=== PATIENT | male | born 1955 | race Caucasian/White ===

== ENCOUNTER 2022-07-13 08:32 | Inpatient (IN) | payer MEDICARE, OTHER ==
[~2022-07-13] VITALS: Ht 172.7 cm; Wt 97.2 kg
[~2022-07-13 08:32] MED LIST: LISINOPRIL5 MG PO; PRILOSEC20 MG PO
[2022-07-13] MEDS ORDERED: LISINOPRIL-HCT1 EACH PO (10:31)
[2022-07-13] MEDS ORDERED: PANTOPRAZOLE SO40 MG PO (10:31)
[2022-07-13] MEDS ORDERED: SUCRALFATE1 GM PO (10:31)
[2022-07-13] MEDS ORDERED: TAMSULOSIN HCL0.4 MG PO (13:09)
[2022-07-13] MEDS ORDERED: SIMVASTATIN40 MG PO (13:09)
[2022-07-16] MEDS ORDERED: MOTRIN IB200 MG PO (09:34)
[2022-07-16] MEDS ORDERED: TYLENOL EXTRA500 MG PO (09:34)
[2022-07-16] MEDS ORDERED: PERCOCET 7.5-31 EACH PO (09:34)
--- NOTE | 2022-07-16 10:40 | HP ---
[facility] [address] [place], [place] [address] Signed ADMISSION DATE: 07/13/2022 REASON FOR ADMISSION: Small bowel obstruction. HISTORY OF PRESENT ILLNESS: This 66-year-old white man is a patient of Dr. Vazquez. I was called by Dr. Vazquez's this morning, noting that the patient had undergone a CT scan of the abdomen yesterday. The results were not available to Dr. Vazquez's until today, but did confirm a central small bowel obstruction considered at the area of prior small bowel anastomosis. I am well familiar with the patient having performed Hill posterior gastropexy for reflux disease and associated Jewell's esophagus in 1997. Subsequently, he did have a small bowel obstruction in 2001 requiring segmental small bowel resection with anastomosis. The patient tells me he has been having symptoms since the weekend (today is Tuesday) and pain has been unrelenting and abdominal distention significant. Notably, he has not had nausea or vomiting particularly. The patient and his relate that he has had episodes of a similar type at least two times a year for the past several years. I had never been aware of these problems and they typically resolve on their own. Imaging studies including a CT scan from yesterday confirmed a granuloma in the right lower abdomen anterior abdominal wall and dilated small bowel with a transition point in the central abdomen near a prior small bowel anastomosis. There was no colonic dilatation and no abnormality of the appendix. Prior cholecystectomy was confirmed. He had no thyromegaly rather splenomegaly or splenic mass. There is no finding of hiatal hernia. There is no pleural effusion or pulmonary abnormality otherwise. MEDICATIONS: Include lisinopril 5 mg daily and omeprazole 20 mg daily. REVIEW OF SYSTEMS: He denies any shortness of breath or actual chest pain. He mostly complains of central abdominal pain and significant distention. PHYSICAL EXAMINATION: GENERAL: This is an obese white man who looks to be in moderate discomfort. Electronically Signed By: NOHEMI CHOE MD 07/16/22 1040 PATIENT NAME: ASIYA ALVARADO HISTORY AND PHYSICAL DATE OF : 55 REPORT #: [id number] PHYSICIAN: NOHEMI CHOE MD PCP: CLARI VAZQUEZ MD REPORT IS CONFIDENTIAL AND NOT TO BE RELEASED WITHOUT AUTHORIZATION [facility] [address] [place], [place] [address] Signed VITAL SIGNS: Show temperature of 98, pulse 101, blood pressure 145/67, respirations 24, O2 saturations 100% on room air. HEENT: He has a thick quinn leal. Trachea is midline. CHEST: Shows clear breath sounds bilaterally. HEART: Regular. ABDOMEN: Quite markedly distended with a "beach ball" appearance. There is a small soft tissue mass in the right lateral abdominal wall about 2 cm in size. He does not have a generalized peritonitis. EXTREMITIES: Show no clubbing, cyanosis, or edema. LABORATORY DATA: Today show white count of 10.3, hematocrit 47.1, platelets 215,000. Chem profile is essentially normal. Glucose 134, bilirubin 1.3, ALT 65, total protein is 8.6, amylase is normal at 50, lipase normal at 110. Serology shows pending coronavirus and influenza assessment. I have reviewed the CT scan in detail as well as reports and so on. ASSESSMENT: The patient appears to have significant small-bowel obstruction with considerable abdominal distention. The ostensible site of obstruction is considered a prior anastomosis. This may represent an internal hernia or simple adhesion or stricture related obstruction. At this point, fluid resuscitation is paramount as well as pain control under the circumstances we will place a nasogastric tube as additional air stacking will worsen his distention thus warranting decompression. It is highly probable, considering his chronic recurrent similar symptoms over the past few years, that operative intervention will be necessary. It is noted that the stomach on the CT scan does not show signs of excessive distention. He does have somewhat dysmorphic lower rib cage, particularly on the left and considerable amount of intraabdominal visceral fat. MD SHANELL Cade/RAFFIL /[id number] Electronically Signed By: NOHEMI CHOE MD 07/16/22 1040 PATIENT NAME: ASIYA ALVARADO HISTORY AND PHYSICAL DATE OF : 55 REPORT #: [id number] PHYSICIAN: NOHEMI CHOE MD PCP: CLARI VAZQUEZ MD REPORT IS CONFIDENTIAL AND NOT TO BE RELEASED WITHOUT AUTHORIZATION [facility] [address] [place] [address] Signed Copies: ~ Electronically Signed By: NOHEMI CHOE MD 07/16/22 1040 PATIENT NAME: ASIYA ALVARADO HISTORY AND PHYSICAL DATE OF : 55 REPORT #: [id number] PHYSICIAN: NOHEMI CHOE MD PCP: CLARI VAZQUEZ MD REPORT IS CONFIDENTIAL AND NOT TO BE RELEASED WITHOUT AUTHORIZATION
--- NOTE | 2022-07-16 13:12 | DS ---
[facility] [address] [place], [place] [address] Signed ADMISSION DATE: 07/13/2022 DISCHARGE DATE: 07/16/2022 REASON FOR ADMISSION: This 66-year-old white man is a patient of Dr. Vazquez. I was called by Dr. Vazquez on the morning of his admission, noting the patient had undergone a CT scan of the abdomen the day before for recurrent abdominal pain. This confirmed the central small bowel obstruction considered in the area of prior small bowel anastomosis. I am well familiar with the patient as he underwent Hill posterior gastropexy for reflux disease and associated Jewell's esophagus in 1997. Subsequently, he did have small bowel obstruction in 2001 requiring segmental small-bowel resection with anastomosis. The patient has been having at least every six months episodes of three days of unrelenting abdominal pain, relieved only by lying in a position for 2 to 3 days. He had another episode recently and evaluation by CT scan was undertaken by Dr. Vazquez. Given the findings of probable anastomotic obstructed area, further admission to the hospital was recommended. PHYSICAL EXAMINATION: GENERAL: Showed an obese white man who looks to be in moderate discomfort. VITAL SIGNS: Temperature is 98, pulse 101, blood pressure 145/67, respirations 24, saturations 100% on room air. CHEST: Clear. HEART: Regular without murmur. ABDOMEN: Quite markedly distended with a "beach ball" appearance. There is a small soft tissue mass in the right lateral abdominal wall 2 cm in size. He has no sign of generalized peritonitis. LABORATORY DATA: White count was 10.3, hematocrit 47.1, platelets 215,000. Chem profile normal. HOSPITAL COURSE: The patient was admitted and although not with nausea or vomiting, was given a nasogastric tube. This did not put out very much fluid. The following day, abdominal x-ray showed that the contrast from the CT scan had progressed throughout the bowel and into the colon. Given the patient's recurrent episodes of small-bowel obstruction, thought likely related to an anastomotic stricture or adhesions, further consideration was made for definitive treatment of his problem. Electronically Signed By: NOHEMI CHOE MD 07/16/22 1312 PATIENT NAME: ASIYA ALVARADO DISCHARGE SUMMARY DATE OF : 55 REPORT #: [id number] PHYSICIAN: NOHEMI CHOE MD PCP: CLARI VAZQUEZ MD REPORT IS CONFIDENTIAL AND NOT TO BE RELEASED WITHOUT AUTHORIZATION [facility] [address] [place] [address] Signed On July 14, 2022, he underwent exploration of the abdomen. 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 Meticulous dissection was required to free the anterior abdominal wall from the underlying small bowel which was densely matted together. A single enterotomy was made during the course of the long lengthy freeing of the bowel from the abdominal wall which was meticulously repaired including application of fibrin glue at conclusion. It became quite clear that further efforts of freeing of bowel to encounter the presumed site of previous instruction would be more hazardous than beneficial. The abdomen was closed safely after freeing the fascial layer from the underlying small bowel which was densely matted together with interloop adhesions. A small-bowel follow-through was performed the next day, which showed complete passage of contrast through the bowel with no evidence of obstruction or impediment. Nasogastric tube was removed and he was advanced in his diet. By day of discharge, he is tolerating a low-fiber diet without problem. One would have to be very strongly pushed to enter the abdominal cavity again for remedy of a bowel obstruction. I would predict at least 8-10 hours of laborious lysis of adhesions to even encounter an area of obstruction in the future and I would certainly make all attempts to avoid need for exploration of his particular abdomen in the future. FOLLOWUP PLAN: He is return to see me in approximately four weeks. He is to lift no more than 20 pounds for four weeks. DISCHARGE MEDICATIONS: Will include: 1. Tylenol Extra Strength 500 mg 2 tabs p.o. q.6 hours as needed for pain #60. 2. Ibuprofen 600 mg p.o. q.6 hours as needed for pain #30, refill 0. 3. Percocet 7.5/325 one p.o. q.6 hours as needed for pain #10. 4. He will continue his usual medications of Protonix, sucralfate, lisinopril, hydrochlorothiazide, tamsulosin, and simvastatin. DISCHARGE DIAGNOSES: 1. Acute small bowel obstruction with spontaneous resolution. 2. 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 3. Distant history of Hill posterior gastropexy for reflux disease. 4. Distant history of small bowel resection for small bowel obstruction (2001). 5. Obesity. 6. Hypertension. Electronically Signed By: NOHEMI CHOE MD 07/16/22 1312 PATIENT NAME: ASIYA ALVARADO DISCHARGE SUMMARY DATE OF : 55 REPORT #: [id number] PHYSICIAN: NOHEMI CHOE MD PCP: CLARI VAZQUEZ MD REPORT IS CONFIDENTIAL AND NOT TO BE RELEASED WITHOUT AUTHORIZATION [address] [place], [place] [address] Signed MD SHANELL Cade/MODL /[id number] cc: Clari Vazquez MD Copies: CLARI VAZQUEZ MD ~ Electronically Signed By: NOHEMI CHOE MD 07/16/22 1312 PATIENT NAME: ASIYA ALVARADO DISCHARGE SUMMARY DATE OF : 55 REPORT #: [id number] PHYSICIAN: NOHEMI CHOE MD PCP: CLARI VAZQUEZ MD REPORT IS CONFIDENTIAL AND NOT TO BE RELEASED WITHOUT AUTHORIZATION
--- NOTE | 2022-07-20 07:39 | OR ---
[facility] [address] [place], [place] [address] Signed DATE OF OPERATION: 07/14/2022 SURGEON: Nohemi Choe MD PREOPERATIVE DIAGNOSIS: Recurrent small-bowel obstruction, apparent anastomotic site of obstruction. POSTOPERATIVE DIAGNOSES: 1. Recurrent small-bowel obstruction, apparent anastomotic site of obstruction. 2. Frozen abdomen, extensive adhesions. PROCEDURE: Laparotomy with extensive lysis of adhesions. Repair of enterotomy, inability to fully mobilize small bowel. ANESTHESIA: General endotracheal, Nohemi Alves CRNA. INDICATION: This 66-year-old white man is known to me from the past having undergone Hill posterior gastropexy for reflux disease in 1997. He subsequently underwent laparotomy and lysis of adhesions and segmental small bowel resection in 2001 for bowel obstruction. I was recently called by Dr. Vazquez as the patient has had bouts of abdominal pain recently for which a CT scan was performed on July 12 showing a small bowel obstruction apparently in the area of previous anastomosis. He did not have nausea or vomiting but pain. The patient advises me that he has two episodes a year of rather significant abdominal pain, relieved only by lying in the position for a few days, but ultimately resolving. Overnight, he is improved, having had rehydration and a followup KUB today shows contrast to be in the colon indicative of a non-complete obstruction. Considering his recurrent bouts of obstruction, I have offered and he strongly wishes to undergo laparotomy for remedy of the adhesion related problem or other cause of his bowel obstruction. He and his understand the risks of bleeding, infection, failure of operation, need for other indicated procedures and so forth. FINDINGS: He had a frozen abdomen. Entry to the peritoneal cavity was meticulous and thin small bowel loops were in a cocoon-like attitude of interloop adhesions. Small bowel was freed from the anterior abdominal wall through the midline incision hoping to find an entry point into the depths of the abdominal cavity, but his situation was one of Electronically Signed By: NOHEMI CHOE MD 07/16/22 1311 Electronically Signed By: NOHEMI CHOE MD 07/22/22 0829 PATIENT NAME: ASIYA ALVARADO OPERATIVE REPORT DATE OF : 55 REPORT #: [id number] PHYSICIAN: NOHEMI CHOE MD PCP: CLARI VAZQUEZ MD REPORT IS CONFIDENTIAL AND NOT TO BE RELEASED WITHOUT AUTHORIZATION [facility] [address] [place], [place] [address] Signed profound interloop adhesions. A small enterotomy did occur despite meticulous efforts to avoid it and was repaired in a two-layer technique with application of fibrin glue. Rather than persist with further high probability of catastrophic enterotomies and ultimate fistula formation, the operation was truncated at the lysis of adhesions that had occurred anticipating a contrast study to assess for degree of obstructive process. I predict that operation for his obstruction would require more than 8 hours of dissection and perhaps be more hazardous for enterotomy and fistula formation than would warrant particularly if he does not have total obstruction at this time. DESCRIPTION OF PROCEDURE: The patient was brought to the operating room, given a general endotracheal anesthetic. A nasogastric tube was in place. A Skinner catheter was placed as well. The abdomen was clipped and prepared with a chlorhexidine solution and draped sterilely. The previous midline incision extended from xiphoid to suprapubic area. The area cephalad to the umbilicus was decided upon for entry to the abdomen. An incision was made with a 10 blade and dissection carried down to the fascia. Fascia was incised with electrocautery and a small amount of properitoneal fat identified. The fascia was elevated and using meticulous care, the fascia was divided. Quickly apparent just cephalad to the umbilicus was a loop of small bowel densely adherent to the abdominal wall. This was carefully avoided of course. Dissection was begun with sharp dissection cephalad to this area, freeing the bowel loops which were friable, thin and impressively matted together. Meticulous care was maintained to develop a plane on the right side of the abdomen, initially freeing the anterior abdominal wall from the intra-abdominal viscera. Optimism was maintained that an intraperitoneal window would find non-encumbered bowel, but it was not forthcoming. Dissection was carried inferiorly where at the umbilicus and slightly below bowel loops were quite densely adherent. It is uncertain if this may have represented the actual site of obstruction. Further dissection was undertaken more fully laterally freeing the bowel, but noting that it was encumbered in a essentially an encasement of interloop adhesions. Indeed this was a typical "frozen abdomen." Upon freeing the bowel more fully, a small enterotomy was made in one of the bowel loops. Egress of foamy green bile was noted. This area was isolated and more fully dissected free and repair undertaken in a two-layer technique of interrupted 3-0 Vicryl mucosal layer and interrupted 3-0 silk in the serosal layer. Subsequently, a large clip was applied to the silk tag stitch for further imaging identification and ultimately later fibrin glue applied as well. There was no sign of leakage or other problem. There is no known downstream obstruction which would increase the hazard of fistula formation. Given the appearance of the abdomen and the fact that much of his obstructive process had cleared overnight, it is deemed more advisable to abandon operation today more fully perhaps with a small-bowel follow-through and return if necessary for other interventions. Since the midline fascia was still fused to bowel in the left side of Electronically Signed By: NOHEMI CHOE MD 07/16/22 1311 Electronically Signed By: NOHEMI CHOE MD 07/22/22 8305 PATIENT NAME: ASIYA ALVARADO OPERATIVE REPORT DATE OF : 55 REPORT #: [id number] PHYSICIAN: NOHEMI CHOE MD PCP: CLARI VAZQUEZ MD REPORT IS CONFIDENTIAL AND NOT TO BE RELEASED WITHOUT AUTHORIZATION [facility] [address] [place] [facility] [place] [address] Signed the abdomen, this needed to be freed even to allow for safe closure. On that basis with sharp dissection including a 15 blade and so forth, bowel loops that were densely adherent to the anterior abdominal wall were freed up including in the region of the umbilicus allowing for safe closure. Irrigation was undertaken. Midline fascia was reapproximated with running bidirectional #1 PDS suture. Subcutaneous tissue was irrigated and skin closed with running subcuticular 3-0 Vicryl. Steri-Strips were applied as was an Acticoat dressing. The patient was ultimately extubated and transferred to the recovery room in good condition having suffered no severe complication. Sponge, needle, and counts reported as correct x3. MD SHANELL Cade/RAFFIL /[id number] cc: Clari Vazquez MD Copies: CLARI VAZQUEZ MD ~ Electronically Signed By: NOHEMI CHOE MD 07/16/22 1311 Electronically Signed By: NOHEMI CHOE MD 07/22/22 0829 PATIENT NAME: ASIYA ALVARADO OPERATIVE REPORT DATE OF : 55 REPORT #: [id number] PHYSICIAN: NOHEMI CHOE MD PCP: CLARI VAZQUEZ MD REPORT IS CONFIDENTIAL AND NOT TO BE RELEASED WITHOUT AUTHORIZATION
== END 2022-07-16 10:20 | disposition home or self-care (01) | DRG 331 ==
LOC: MS 08:32
PROVIDERS: ADMIT Surgery; ATTEND Surgery
PROC: 0DN80ZZ Release Small Intestine, Open Approach (ICD-10-PCS; principal; 2022-07-14 09:15)
PROC: 0DQ80ZZ Repair Small Intestine, Open Approach (ICD-10-PCS; 2022-07-14 09:15)
DX: K91.30 Postprocedural intestinal obstruction, unspecified as to partial versus complete (principal); E66.9 Obesity, unspecified; I10 Essential (primary) hypertension; Z20.822 Contact with and (suspected) exposure to COVID-19; Z68.32 Body mass index [BMI] 32.0-32.9, adult; Y83.8 Other surgical procedures as the cause of abnormal reaction of the patient, or of later complication, without mention of misadventure at the time of the procedure
CPT/HCPCS: 00790; 36415; 74018; 74250; 80048; 80053; 82150; 83690; 85025; 87502; 94760; J0131; J0330; J0694; J1100; J1170; J1644; J1885; J2250; J2405; J2704; J2765; J3010; J7121; U0003

== ENCOUNTER 2025-04-28 19:57 | Inpatient (IN) | payer MEDICARE, OTHER ==
[~2025-04-28] VITALS: Ht 172.7 cm; Wt 97.2 kg
[~2025-04-28 19:57] MED LIST changes: +LISINOPRIL-HCT1 EACH PO; +MOTRIN IB200 MG PO; +PANTOPRAZOLE SO40 MG PO; +PERCOCET 7.5-31 EACH PO; +SIMVASTATIN40 MG PO; +SUCRALFATE1 GM PO; +TAMSULOSIN HCL0.4 MG PO; +TYLENOL EXTRA500 MG PO
[2025-04-28 20:59] LABS: BASOPHILS 0.3 % (0.2-1.2); EOSINOPHILS 1.1 % (0.8-7.0); LYMPHOCYTES 8.5 % (21.8-53.1); MCH 30.7 PG (25.7-32.2); MCHC 35.1 g/dL (32.3-36.5); MCV 87.3 fL (79.0-92.2); MONOCYTES 6.4 % (5.3-12.2); NEUTROPHILS 83.3 % (34.0-67.9); RBC 5.51 M/uL (4.63-6.08)
[2025-04-28] MEDS ORDERED: SODIUM CHLORIDE 0.9% 1,000 ML IV ONE (21:00)
[2025-04-28] MEDS ORDERED: HYDROmorphone HCL 1 MG/ML SYR IV PRN ×2 (21:00→22:45)
[2025-04-28 21:15] LABS: ALT (SGPT) 70.0 U/L (14-59); AST (SGOT) 41.0 U/L (15-37); GLOMERULAR FILTRATION RATE,EST 72.0 mL/min (>60); PROTEIN, TOTAL 9.0 g/dL (6.4-8.2); UREA NITROGEN 17.0 mg/dL (7-18)
[2025-04-28] MEDS ORDERED: FAMOTIDINE 20 MG/ 2 ML VIAL IV SCH (22:38)
[2025-04-28] MEDS ORDERED: DEXTROSE 5% - LACTATED RINGERS 1,000 ML IV SCH (22:45)
[2025-04-28] MEDS ORDERED: PROCHLORPERAZINE EDISYLATE 10 MG/2 ML VIAL IV PRN (22:45)
[2025-04-28] MEDS ORDERED: ACETAMINOPHEN 325 MG TAB PO PRN (22:45)
[2025-04-28] MEDS ORDERED: LIDOCAINE 2% VISCOUS 6 ML SYR MM ONE (23:00)
[2025-04-29] VITALS (10 sets, daily range): BP systolic 140–180; BP diastolic 68–90
[2025-04-29 05:27] LABS: BASOPHILS 0.3 % (0.2-1.2); EOSINOPHILS 1.3 % (0.8-7.0); LYMPHOCYTES 10.5 % (21.8-53.1); MCH 31.6 PG (25.7-32.2); MCHC 35.0 g/dL (32.3-36.5); MCV 90.2 fL (79.0-92.2); MONOCYTES 8.0 % (5.3-12.2); NEUTROPHILS 79.6 % (34.0-67.9); RBC 4.59 M/uL (4.63-6.08)
[2025-04-29 05:47] LABS: ALT (SGPT) 52.0 U/L (14-59); AST (SGOT) 30.0 U/L (15-37); GLOMERULAR FILTRATION RATE,EST 95.0 mL/min (>60); PROTEIN, TOTAL 7.0 g/dL (6.4-8.2); UREA NITROGEN 15.0 mg/dL (7-18)
[2025-04-29] MEDS ORDERED: TAMSULOSIN HCL 0.4 MG CAP PO SCH (09:00)
[2025-04-29] MEDS ORDERED: hydroCHLOROthiazide 25 MG TAB PO SCH (09:00)
[2025-04-29] MEDS ORDERED: MENTHOL/CETYLPYRD CL 1 LOZ LOZENGE PO PRN (10:00)
[2025-04-29] MEDS ORDERED: FAMOTIDINE 20 MG/ 2 ML VIAL IV SCH ×2 (13:44→21:00)
[2025-04-29] MEDS ORDERED: ENOXAPARIN SODIUM 40 MG/0.4 ML SYR SUB-Q SCH (13:45)
[2025-04-29] MEDS ORDERED: PROCHLORPERAZINE EDISYLATE 10 MG/2 ML VIAL IV PRN (13:45)
[2025-04-29] MEDS ORDERED: LACTATED RINGER'S 1,000 ML IV SCH (13:45)
[2025-04-29] MEDS ORDERED: KETOROLAC TROMETHAMINE 30 MG/ML VIAL IV PRN (13:45)
[2025-04-30 05:14] LABS: BASOPHILS 0.6 % (0.2-1.2); EOSINOPHILS 4.3 % (0.8-7.0); LYMPHOCYTES 19.8 % (21.8-53.1); MCH 30.8 PG (25.7-32.2); MCHC 34.5 g/dL (32.3-36.5); MCV 89.5 fL (79.0-92.2); MONOCYTES 10.6 % (5.3-12.2); NEUTROPHILS 64.5 % (34.0-67.9); RBC 4.28 M/uL (4.63-6.08)
[2025-04-30 05:45] VITALS: BP 135/70
[2025-04-30 09:09] VITALS: BP 148/68
--- NOTE | 2025-04-30 11:53 | HP ---
[facility] [address] [place], [place] [address] Signed ADMISSION DATE: 04/28/2025 REASON FOR ADMISSION: Recurrent bowel obstruction. HISTORY OF PRESENT ILLNESS: This 69-year-old white man was feeling well yesterday until approximately 9:00 a.m. after breakfast where he had severe abdominal pain so severe it put him into a position. He presented to the emergency room where he was thoroughly evaluated by Dr. Chaudhari and found to have small-bowel obstruction by clinical criteria as well as CT scan of the abdomen. A CT scan of the abdomen described small bowel obstruction with a transition point in the midline of the lower abdomen, likely related to adhesions. There was distention of the cecum to 10 cm filled with fecal material. The colon was also filled with stool. There was no obvious transition point of the colon. There was trace ascites and fatty liver. Of extreme note, his hospitalization between July 13, 2022 and July 16, 2022 where he was admitted for small bowel obstruction as well. He had undergone prior Hill repair for gastroesophageal reflux problems, but on July 14, 2022, underwent exploration of the abdomen. He had essentially a sclerosing capsulitis of the abdominal contents with meticulous care required to free the anterior abdominal wall from the underlying small bowel, which was densely matted together. He was deemed essentially extremely high risk for additional intervention and operation was abandoned and a nonoperative approach pursued. A small-bowel follow-through performed the next day had shown complete passage of contrast to the bowel with no evidence of obstruction or impediment. The patient tells me he was put on a Citrucel supplement by Dr. Vazquez, his main doctor two weeks ago. He noted since the time of his taking of the Citrucel that he is feeling worse, not better. His complaint prior to that was "constipation." He notes now that this constipation has worsened rather than improved with Citrucel. I had advised the patient to maintain a low-fiber diet going forward after his last episode. His other medical issues include obesity, which has worsened over time, hypertension, gastroesophageal reflux clinically, and dyslipidemia. MEDICATIONS: His medicines at admission included; 1. Tylenol. 2. Ibuprofen. Electronically Signed By: NOHEMI CHOE MD 04/30/25 1153 PATIENT NAME: ASIYA ALVARADO HISTORY AND PHYSICAL DATE OF : 55 REPORT #: [id number] PHYSICIAN: NOHEMI CHOE MD PCP: CLARI VAZQUEZ MD REPORT IS CONFIDENTIAL AND NOT TO BE RELEASED WITHOUT AUTHORIZATION [facility] [address] [place] [address] Signed 3. Lisinopril. 4. Hydrochlorothiazide. 5. Oxycodone. 6. Simvastatin. 7. Carafate. 8. Flomax. Since admission, a nasogastric tube has been placed and has been functioning. He does not have copious amounts of output. The position of the nasogastric tube appears to be in good position overall. REVIEW OF SYSTEMS: He denies any shortness of breath or chest pain. His abdominal pain is much improved. He denies any dysuria or hematuria. PHYSICAL EXAMINATION: GENERAL: Pleasant white man who looks more plethoric than I remember him in the past. VITAL SIGNS: Temperature is 97.2, pulse 65, blood pressure 144/71, weight is 96.7 kg, BMI 32.4, height 5 feet 8 inches. HEENT: Trachea is midline. CHEST: Clear. HEART: Regular. ABDOMEN: Somewhat distended and obese. Palpation shows no rigidity or peritonitis. Minimal tenderness is noted in the lower central abdomen. Midline incision is well healed. There is no sign of hernia. Review of his CT scan was undertaken as well as his abdominal chest x-ray. Nasogastric tube is well positioned. Examination shows distended loops of small bowel as reported by the radiologist gastric distention prior to placement of nasogastric tube. There was a fair amount of stool burden within the colon including the cecum is noted. The area of small bowel that appears to be entangled is noted. ASSESSMENT: The patient has small bowel obstruction, which he has had before and previous laparotomy showed sclerosing encapsulation of the peritoneal contents. All efforts should be made to avoid operative intervention in his particular case. It is highly probable that his Citrucel has contributed to his current situation as a low-fiber diet has been recommended to him in the past and though constipated, an approach to management would be added fluids rather than added fiber in his particular situation. All efforts will be made to avoid need for operative intervention in his particular case. Maintenance of the nasogastric tube, IV fluids and bowel rest will be the Electronically Signed By: NOHEMI CHOE MD 04/30/25 1153 PATIENT NAME: ASIYA ALVARADO HISTORY AND PHYSICAL DATE OF : 55 REPORT #: [id number] PHYSICIAN: NOHEMI CHOE MD PCP: CLARI VAZQUEZ MD REPORT IS CONFIDENTIAL AND NOT TO BE RELEASED WITHOUT AUTHORIZATION [address] [address] Signed mainstay of therapy right now. Discussed all this with him in detail. A repeat abdominal x-ray will be undertaken tomorrow to assess for progress. MD SHANELL Cade/MODL /[id number] cc: MD Tea OconnorDO Kenny Copies: CLARI VAZQUEZ MD ~ Electronically Signed By: NOHEMI CHOE MD 04/30/25 1153 PATIENT NAME: ASIYA ALVARADO HISTORY AND PHYSICAL DATE OF : 55 REPORT #: [id number] PHYSICIAN: NOHEMI CHOE MD PCP: CLARI VAZQUEZ MD REPORT IS CONFIDENTIAL AND NOT TO BE RELEASED WITHOUT AUTHORIZATION
[2025-04-30 12:53] VITALS: BP 149/68
[2025-04-30 17:43] VITALS: BP 150/66
[2025-04-30 20:56] LABS: BLOOD/HGB, URINE NEGATIVE (Negative); KETONE, URINE NEGATIVE (Negative); LEUK ESTERASE, URINE NEGATIVE (negative); NITRITE, URINE NEGATIVE (negative)
[2025-04-30 21:11] VITALS: BP 150/88
[2025-04-30 22:15] VITALS: BP 150/88
[2025-05-01] VITALS (9 sets, daily range): BP systolic 129–152; BP diastolic 61–74
[2025-05-01] MEDS ORDERED: GLYCERIN 2 GM SUPP PR ONE (14:45)
[2025-05-01] MEDS ORDERED: GLYCERIN 1 GM SUPP PR ONE (15:30)
[2025-05-02 06:12] VITALS: BP 160/72
[2025-05-02 06:28] VITALS: BP 160/72
[2025-05-02] MEDS ORDERED: IBUPROFEN 600 MG TAB PO PRN (08:15)
[2025-05-02] MEDS ORDERED: FAMOTIDINE 20 MG TAB PO SCH (09:00)
[2025-05-02 10:24] VITALS: BP 151/74
[2025-05-02] MEDS ORDERED: MILK OF MA400 MG/5 M PO (11:55)
[2025-05-02 12:48] VITALS: BP 167/74
[2025-05-02 13:05] VITALS: BP 167/74
--- NOTE | 2025-05-03 09:06 | DS ---
[facility] [address], [place] [address] Signed ADMISSION DATE: 04/30/2025 DISCHARGE DATE: 05/02/2025 REASON FOR ADMISSION: Small bowel obstruction. HISTORY OF PRESENT ILLNESS: This 69-year-old white man presents to emergency room feeling well until approximately 9:00 a.m. on the day of admission where he had severe abdominal pain. It was so severe, put him into a position. He presented to emergency room, was thoroughly evaluated by Dr. Chaudhari and found to have small-bowel obstruction by clinical criteria as well as CT scan of the abdomen. CT scan described a small bowel obstruction with a transition point in midline of the lower abdomen, likely related to adhesions. There was distention of the cecum to about 10 cm with fecal material. Two weeks previously, the patient had initiated a rather vigorous fiber supplementation program under the direction of Dr. Vazquez, his primary provider. 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 On that basis, conservative management was re-initiated and he resolved the problem. He is admitted at this time for further evaluation and care. PERTINENT PHYSICAL EXAMINATION: GENERAL: Showed a well-developed, obese white man and with a plethoric appearance generally speaking. VITAL SIGNS: Temperature 97.2, pulse 65, blood pressure 144/71, weight is 96.7 kg, BMI 32.4, height 5 feet 8 inches. Trachea midline. CHEST: Clear. HEART: Regular without murmur. ABDOMEN: Distended and obese. There is no rigidity or peritonitis. Minimal tenderness is noted in the right lower central abdomen. Midline incision is well healed. There is no sign of hernia. IMAGING: CT scan confirmed the findings as previously noted. A nasogastric tube had been placed and a subsequent x-ray confirmed tube in the stomach. HOSPITAL COURSE: Electronically Signed By: NOHEMI CHOE MD 05/03/25 0906 PATIENT NAME: ASIYA ALVARADO DISCHARGE SUMMARY DATE OF : 55 REPORT #: [id number] PHYSICIAN: NOHEMI CHOE MD PCP: CLARI VAZQUEZ MD REPORT IS CONFIDENTIAL AND NOT TO BE RELEASED WITHOUT AUTHORIZATION [facility] [address], [place] [address] Signed He was maintained with nasogastric tube decompression, IV fluids and bowel rest. A followup KUB showed no large air-fluid levels or anything of the sort. The colon did have fair amount of stool within it. The patient was maintained with bowel rest, nasogastric tube decompression at which point, he did have some flatus. The nasogastric tube was removed and he was initiated on a clear liquid diet, advanced to full liquid diet and ultimately to a low fiber diet, which he tolerated well. Additionally, he was given a glycerin suppository to initiate bowel movements and clearance of the colon, which was relatively highly impacted by fiber supplementation. Enemas were also required, but he ultimately did have solid bowel movements. By day of discharge, he is tolerating a low-fiber diet well. Has had bowel movements. Abdominal pain is gone and distention, though still present and is considered close to his baseline. He was carefully advised to avoid a high-fiber diet and definitely avoid fiber supplementation. If he should have constipation complaints, milk of magnesia or MiraLAX or other similar non-fiber antidote would be most appropriate. DISCHARGE MEDICATIONS: 1. Milk of magnesia 5 mL p.o. p.r.n. constipation. 2. Protonix 40 mg p.o. daily. 3. Sucralfate 1 g p.o. q.i.d. 4. Lisinopril/hydrochlorothiazide 20/12.5 two tablets p.o. daily. 5. Flomax 0.4 mg two tablets p.o. daily. 6. Simvastatin 40 mg p.o. daily. DISCHARGE DIAGNOSES: 1. Recurrent small bowel obstruction, resolved by conservative measures. 2. History of sclerosing capsulitis of the abdominal contents. 3. Distant history of Hill posterior gastropexy for reflux. 4. Benign prostatic hyperplasia symptoms. 5. Hypertension. MD SHANELL Cade/MODL Electronically Signed By: NOHEMI CHOE MD 05/03/25905 PATIENT NAME: ASIYA ALVARADO DISCHARGE SUMMARY DATE OF : 55 REPORT #: [id number] PHYSICIAN: NOHEMI CHOE MD PCP: CLARI VAZQUEZ MD REPORT IS CONFIDENTIAL AND NOT TO BE RELEASED WITHOUT AUTHORIZATION [address] [address] Signed /[id number] cc: DO Marcie Fields MD Copies: CLARI VAZQUEZ MD ~ Electronically Signed By: NOHEMI CHOE MD 05/03/25 0906 PATIENT NAME: ASIYA ALVARADO DISCHARGE SUMMARY DATE OF : 55 REPORT #: [id number] PHYSICIAN: NOHEMI CHOE MD PCP: CLARI VAZQUEZ MD REPORT IS CONFIDENTIAL AND NOT TO BE RELEASED WITHOUT AUTHORIZATION
== END 2025-05-02 12:49 | disposition home or self-care (01) | DRG 390 ==
LOC: ED 19:57 → MS 19:59
PROVIDERS: Family Medicine; ADMIT Surgery; ATTEND Surgery
PROC: 0D9670Z Drainage of Stomach with Drainage Device, Via Natural or Artificial Opening (ICD-10-PCS; principal; 2025-04-28)
DX: K56.609 Unspecified intestinal obstruction, unspecified as to partial versus complete obstruction (principal); I10 Essential (primary) hypertension; K21.9 Gastro-esophageal reflux disease without esophagitis; E78.5 Hyperlipidemia, unspecified; E66.9 Obesity, unspecified; Z79.1 Long term (current) use of non-steroidal anti-inflammatories (NSAID); Z79.899 Other long term (current) drug therapy; Z88.5 Allergy status to narcotic agent
CPT/HCPCS: 36415; 71045; 74018; 74177; 80053; 81003; 83690; 83735; 85025; J1171; J1650; J1885; J2405; J7030; J7121; Q9967